=== PATIENT | female | born 1985 | race Caucasian/White ===

== ENCOUNTER 2021-04-27 11:54 | Emergency (ER) | payer OTHER, SELFPAY ==
[2021-04-27 12:06] VITALS: BP 97/72; PULSE 78; RESP 16; TEMP 36.6; O2SAT 100
--- NOTE | 2021-04-27 12:50 | ED.FEMALEGU ---
HPI - Female Genitourinary General Chief complaint: Urogenital-Female Stated complaint: POS UTI Time Seen by Provider: 04/27/21 12:40 Source: patient Mode of arrival: ambulatory Limitations: no limitations History of Present Illness HPI Narrative: Brenda Beltran is a 35 yo fen[place] with a PMH of urinary tract infection and depression, comes to [facility] with complaints of frequency and burning that started this morning She has been on Macrobid in the past as well as Keflex of both worked pretty well; she takes normal precautions to avoid urinary tract infections Related Data Home Medications Medication Instructions Recorded Confirmed escitalopram oxalate [Lexapro] 50 mg PO BID 04/27/21 04/27/21 Allergies Allergy/AdvReac Type Severity Reaction Status Date / Time tramadol Allergy Severe seizures Verified 04/27/21 12:06 acetaminophen Allergy Unknown UNKNOWN Verified 04/27/21 12:06 bee stings Allergy Mild Swelling Uncoded 04/27/21 12:06 sumac Allergy Mild Rash Uncoded 04/27/21 12:06 HYDROCODONE BIT Allergy Unknown UNKNOWN Uncoded 04/27/21 12:06 Review of Systems Review of Systems: Narrative: CONSTITUTIONAL: Denies fever, chills, sweats. EYES: Denies visual changes, redness, discharge. ENT: Denies rhinorrhea, congestion, sore throat, otalgia. CARDIOVASCULAR: Denies chest pain, palpitations, edema. RESPIRATORY: Denies dyspnea, wheezing, cough GASTROINTESTINAL: Denies abdominal pain, nausea, vomiting, diarrhea. GENITOURINARY: Has dysuria, hematuria, abnormal discharge SKIN: Denies rash or itching. NEUROLOGIC: Denies numbness, or focal weakness. PSYCHIATRIC: Denies anxiety or depression. [facility] Past Medical History Medical History Bacterial UTI Family History Family History Other Hypertension Social History Social History (Updated 04/27/21 @ 12:52 by Barbara Neil CNP) Smoking status: Never smoker Alcohol intake: current Comments At time of signature, I agree with nursing past medical, surgical, social and family history. There is no relevant family history pertinent to the presenting complaint. Exam Narrative: Exam Narrative: GENERAL: This is a well-nourished, well-developed patient, in mild distress. HEAD: normocephalic, atraumatic. EYES: Sclera clear/white. Vision is grossly intact. EARS: External ears normal, . Hearing grossly intact. NOSE: External nose normal without nasal discharge, nares without redness, no rhinorrhea. THROAT: Mucous membranes moist, NECK: Neck supple, CARDIOVASCULAR: Regular rate and rhythm without murmurs, gallops, or rubs. RESPIRATORY: Clear to auscultation. Breath sounds equal bilaterally. No wheezes, rales, or rhonchi. GASTROINTESTINAL: Abdomen soft, non-tender, SKIN: warm, intact with no suspicious lesions or rash, good texture and turgor. NEURO: awake, alert, and oriented to person, place and time. There were no obvious focal neurologic abnormalities. Steady gait EXTREMITIES: Normal range of motion. BACK: Nontender without deformity Course Course Emergency Course: Patient comes here with dysuria that started this morning has had UTIs frequently and has used Macrobid and Keflex in the past with good results Dipstick shows +2 leukocytes and +1 blood Started on Keflex 500 mg 1 twice daily x5 days with Diflucan at the end of the antibiotics Vital Signs Vital signs: Vital Signs Temperature 97.9 F 04/27/21 12:06 Pulse Rate 78 04/27/21 12:06 Respiratory Rate 16 04/27/21 12:06 Blood Pressure 97/72 L 04/27/21 12:06 Pulse Oximetry 100 04/27/21 12:06 Temperature 97.9 F 04/27/21 12:06 Pulse Rate 78 04/27/21 12:06 Respiratory Rate 16 04/27/21 12:06 Blood Pressure 97/72 L 04/27/21 12:06 Pulse Oximetry 100 04/27/21 12:06 MDM - Female Genitourinary Differential Diagnosis Differential diagnosis: Likely urinary tract infec
== END 2021-04-27 13:00 | disposition home or self-care (01) ==
PROVIDERS: Emergency Provider Nurse Practitioner
DX: N30.90 Cystitis, unspecified without hematuria (principal); F41.9 Anxiety disorder, unspecified; I51.7 Cardiomegaly; I49.8 Other specified cardiac arrhythmias
CPT/HCPCS: 81003; 87077; 87086; 87088; 87186; 99203; G0463